=== PATIENT | female | born 1935 | race Caucasian/White ===

== ENCOUNTER → 2017-01-15 | Outpatient (CLI) | payer OTHER ==
[~2017-01-15] MED LIST: BUSPAR; CYMBALTA PO; LASIX; LEVAQUIN PO; METHADONE; PLAVIX PO; PRILOSEC PO; PROTONIX; PROZAC; SYNTHROID; TOPROL XL
--- NOTE | ~2017-01-15 | CT71 ---
[facility] A Service of [facility] & [facility] RADIOLOGY TEXT RESULTS PATIENT: MARCELLUS KERNS [facility] UNIT #: [id number] AGE: [address]: Bartolome Morin MD SEX: F ORDER DR: [id number] [facility] [address] [place], [place] [address] [id number] O MR#: [id number] #: [id number] NAME: MARCELLUS KERNS : 1935 SEX: F STUDY DATE/TIME: 01/15/2017 13:32 UNIT: [facility] ROOM: STUDY DESCRIPTION: CT Head Wo Contrast Attending Physician: Bartolome Morin Jr., M.D. Referring Physician: Bartolome Morin Jr., M.D. Ordering Physician: Bartolome Morin Jr., M.D. Primary Care Physician: Bartolome Morin Jr., M.D. MEDICAL IMAGING REPORT This report is preliminary unless electronic signature is present EXAM CT head HISTORY Headaches. Worsening headache, generally on top of head, but generalized pain all over x1 year. No known injury. TECHNIQUE CT head performed skull base through vertex without intravenous contrast. This CT exam was performed with one or more of the following radiation dose reduction techniques: Automatic exposure control, adjustment of mA and/or kV according to patient size, and iterative reconstruction. COMPARISON 12/22/2010 FINDINGS The study is slightly degraded by motion/streak artifact. Brainstem unremarkable. Cerebellum and cerebral hemispheres show normal tyler matter-white matter differentiation. No hemorrhage. There is no clear indication of acute cortical ischemia. There are periventricular and deep white matter tract hypodensities most consistent with sequelae of chronic microvascular ischemia. More pronounced than in 2010. There are some patchy areas of diminished density in the bilateral basal ganglia favored to reflect sequelae of small vessel ischemic changes well. The basal ganglia show no clearly acute abnormality. The midline structures are nondisplaced. The ventricles, cisterns and sulci show mild generalized enlargement consistent with mild generalized atrophy. No intra- or extraaxial mass effect or abnormal intracranial fluid collection. There are cavernous carotid arterial calcifications. The intraorbital soft tissues are unremarkable. The visualized paranasal sinuses and mastoid air cells are clear. [facility] A Service of [facility] & [facility] RADIOLOGY TEXT RESULTS PATIENT: MARCELLUS KERNS LOCATION: [facility] : 35 UNIT #: [id number] AGE: [address]: Bartolome Morin MD SEX: F ORDER DR: IMPRESSION 1. No acute abnormality is seen in the brain. The patient has ongoing neurologic symptoms, consider follow up imaging. 2. Chronic changes include: Mild generalized atrophy, periventricular and deep white matter tract probable sequelae of chronic microvascular ischemia, mild patchy areas of diminished density bilateral basal ganglia also favored to represent chronic small vessel ischemic change, vascular calcifications. Dictated by... Bartolome Kumar M.D. THIS IS AN ELECTRONICALLY VERIFIED REPORT Bartolome Kumar M.D. at 01/18/2017 12:58 PM JAYLEEN/myriam TD: 01/16/2017 09:01 JOB #: [id number] MEDICAL IMAGING REPORT Page 1 of 1 COPY
== END | disposition home or self-care (01) ==
LOC: CCAT 12:58
DX: R51 Headache (principal)
CPT/HCPCS: 70450